=== PATIENT | male | born 1940 | race African-American/Black ===

== ENCOUNTER → 2016-11-07 | Outpatient (CLI) | payer MEDICARE, BC | END | disposition home or self-care (01) | LOC: PCVCCLINIC 10:20 | PROVIDERS: ATTEND Internal Medicine Cardiovascular Disease | DX: I25.10 Atherosclerotic heart disease of native coronary artery without angina pectoris (principal); E78.00 Pure hypercholesterolemia, unspecified; I73.9 Peripheral vascular disease, unspecified; I48.91 Unspecified atrial fibrillation; I10 Essential (primary) hypertension; I77.9 Disorder of arteries and arterioles, unspecified; I07.1 Rheumatic tricuspid insufficiency | CPT/HCPCS: 80061; 93005; G0463 ==

== ENCOUNTER → 2016-11-17 | Outpatient (CLI) | payer MEDICARE, BC | END | disposition home or self-care (01) | LOC: PCVCIMAG 08:22 | PROVIDERS: ATTEND Internal Medicine Cardiovascular Disease | DX: I65.23 Occlusion and stenosis of bilateral carotid arteries (principal); I73.9 Peripheral vascular disease, unspecified; Z95.820 Peripheral vascular angioplasty status with implants and grafts | CPT/HCPCS: 93880; 93925; 93978 ==

== ENCOUNTER → 2017-05-04 | Outpatient (CLI) | payer MEDICARE, BC | END | disposition home or self-care (01) | LOC: PCVCCLINIC 09:43 | PROVIDERS: ATTEND Internal Medicine Cardiovascular Disease | DX: I25.10 Atherosclerotic heart disease of native coronary artery without angina pectoris (principal); E11.9 Type 2 diabetes mellitus without complications; I10 Essential (primary) hypertension; I73.9 Peripheral vascular disease, unspecified; I48.2 Chronic atrial fibrillation; I77.9 Disorder of arteries and arterioles, unspecified; I36.1 Nonrheumatic tricuspid (valve) insufficiency; E78.00 Pure hypercholesterolemia, unspecified; Z87.891 Personal history of nicotine dependence; Z79.84 Long term (current) use of oral hypoglycemic drugs; Z79.01 Long term (current) use of anticoagulants | CPT/HCPCS: 80061; 93005; G0463 ==

== ENCOUNTER → 2018-01-21 | Outpatient (CLI) | payer MEDICARE, BC | END | disposition home or self-care (01) | LOC: PCVCCLINIC 10:20 | DX: I25.10 Atherosclerotic heart disease of native coronary artery without angina pectoris (principal); I10 Essential (primary) hypertension; I48.91 Unspecified atrial fibrillation; E78.00 Pure hypercholesterolemia, unspecified; I36.1 Nonrheumatic tricuspid (valve) insufficiency; I73.9 Peripheral vascular disease, unspecified; E11.9 Type 2 diabetes mellitus without complications; Z87.891 Personal history of nicotine dependence; Z79.899 Other long term (current) drug therapy; Z79.84 Long term (current) use of oral hypoglycemic drugs; Z79.01 Long term (current) use of anticoagulants | CPT/HCPCS: 80061; 93005; G0463 ==

== ENCOUNTER → 2018-02-05 | Outpatient (CLI) | payer MEDICARE, BC ==
[~2018-02-05] MED LIST: REGADENOSON 0.4 MG/5 ML DISP.SYRIN. IV
== END | disposition home or self-care (01) ==
LOC: PCVCIMAG 08:28
DX: I73.9 Peripheral vascular disease, unspecified (principal); I25.10 Atherosclerotic heart disease of native coronary artery without angina pectoris; I48.91 Unspecified atrial fibrillation
CPT/HCPCS: 78452; 93017; 93925; A9500; J2785

== ENCOUNTER → 2018-09-17 | Outpatient (CLI) | payer MEDICARE, BC | END | disposition home or self-care (01) | LOC: PCVCCLINIC 11:51 | PROVIDERS: ATTEND Internal Medicine Cardiovascular Disease | DX: I25.10 Atherosclerotic heart disease of native coronary artery without angina pectoris (principal); E78.00 Pure hypercholesterolemia, unspecified; I48.2 Chronic atrial fibrillation; I73.9 Peripheral vascular disease, unspecified; I36.1 Nonrheumatic tricuspid (valve) insufficiency; I10 Essential (primary) hypertension; E11.9 Type 2 diabetes mellitus without complications; Z87.891 Personal history of nicotine dependence; Z79.84 Long term (current) use of oral hypoglycemic drugs; Z79.01 Long term (current) use of anticoagulants | CPT/HCPCS: 80061; 93005; G0463 ==

== ENCOUNTER → 2019-04-17 | Outpatient (CLI) | payer MEDICARE, BC ==
--- NOTE | 2019-04-17 10:22 | PCVCIMAG ---
APPROVED REPORT Study performed: 04/17/2019 08:32:10 EXAM: Comprehensive 2D, Doppler, and color-flow Echocardiogram Patient Location: Echo lab Room #: 2Status: routine BSA: 2.34 HR: 63 bpmBP: 140/78 mmHg Rhythm: Atrial Fibrillation Other Information Study Quality: Good Risk Factors: Cardiac Risk Factors: HTN, Hyperlipidemia, DM Indications Diabetes Atrial Fibrillation CAD Hypertension/HDD 2D Dimensions IVSd: 11.32 (7-11mm)LVOT Diam: 23.23 (18-24mm) LVDd: 47.10 mm PWd: 12.15 (7-11mm)Ascending Ao: 34.55 (22-36mm) LVDs: 27.83 (25-40mm) Left Atrium: 46.04 (27-40mm) Aortic Root: 37.62 mm LV Single Plane 4CH: 52.76 % LV Single Plane 2CH: 62.35 % Biplane EF: 58.7 % Volumes Left Atrial Volume (Systole) Single Plane 4CH: 107.84 mLSingle Plane 2CH: 75.02 mL Biplane LA Volume: 94.00 mLLA ESV Index: 40.00 mL/m2 Aortic Valve AoV Peak Jin.: 1.43 m/s AO Peak Gr.: 9.90 mmHgLVOT Max P.92 mmHg LVOT Max V: 0.64 m/s MARISEL Vmax: 1.89 cm2 Mitral Valve MV E Max Jin.: 1.00 m/s MV PHT: 57.93 ms MVA (PHT): 3.80 cm2 IVRT: 103.81 ms TDI E/Lateral E': 7.69E/Medial E': 10.00 Medial E' Jin.: 0.10 m/s Lateral E' Jin.: 0.13 m/s Pulmonary Valve PV Peak Jin.: 0.92 m/sPV Peak Gr.: 3.39 mmHg Tricuspid Valve TR Peak Jin.: 2.85 m/s TR Peak Gr.: 32.38 mmHg TV Vmax: 0.88 m/sPA Pressure: 39.00 mmHg Left Ventricle The left ventricle is normal size. There is normal LV segmental wall motion. Borderline concentric left ventricular hypertrophy. Left ventricular systolic function is normal. The left ventricular ejection fraction is within the normal range. LVEF is 55-60%. This study is not technically sufficient to allow evaluation of the LV diastolic function due to atrial fibrillation. Right Ventricle Right ventricle is moderately dilated. The right ventricular systolic function is normal. Atria Left atrium is mildly dilated. Small PFO is noted. Right atrium is severely dilated. Aortic Valve Aortic valve is trileaflet. Mild aortic valve sclerosis with minimal reduction in leaflet excursion. No aortic regurgitation is present. There is no aortic valvular stenosis. Mitral Valve The mitral valve is normal in structure. There is no mitral valve regurgitation noted. No evidence of mitral valve stenosis. Tricuspid Valve The tricuspid valve is normal in structure. Moderate to severe tricuspid regurgitation with a PA pressure of 39 mmHg. Mild pulmonary hypertension. Pulmonic Valve The pulmonary valve is normal in structure. There is no pulmonic valvular regurgitation. Great Vessels The aortic root is normal in size. The ascending aorta is normal in size. Aortic arch is normal in caliber. IVC is normal in size and collapses >50% with inspiration. Pericardium There is no pericardial effusion. There is no pleural effusion. <Conclusion> The left ventricle is normal size. LVEF is 55-60%. This study is not technically sufficient to allow evaluation of the LV diastolic function due to atrial fibrillation. Right ventricle is moderately dilated. Left atrium is mildly dilated. Right atrium is severely dilated. Small PFO is noted. Aortic valve is trileaflet. Mild aortic valve sclerosis with minimal reduction in leaflet excursion. There is no mitral valve regurgitation noted. Moderate to severe tricuspid regurgitation with a PA pressure of 39 mmHg. Mild pulmonary hypertension. The aortic root is normal in size. There is no pericardial effusion.
--- NOTE | 2019-04-17 11:32 | PCVCIMAG ---
EXAM: BILATERAL LOWER EXTREMITY ARTERIAL DUPLEX INDICATION: Peripheral Arterial Disease. Leg pain. FINDINGS: Right Leg: Satisfactory arterial waveforms throughout the common/profunda/superficial femoral, popliteal, anterior tibial, peroneal, and posterior tibial arteries. No flow limiting stenosis seen. Previous right superficial femoral artery stent maintaining satisfactory patency. Left Leg: Satisfactory arterial waveforms throughout the common/profunda/superficial femoral, popliteal, anterior tibial, peroneal, and posterior tibial arteries. No flow limiting stenosis seen. Previous superficial femoral artery and popliteal artery stents maintaining satisfactory patency. Note is made of occlusion of the proximal dorsalis pedis. IMPRESSION: No flow limiting stenosis in the right lower extremity. Previous right superficial femoral artery stent maintaining satisfactory patency. Occlusion proximal left dorsalis pedis. Otherwise no flow limiting stenosis in the left lower extremity. Previous left superficial femoral artery and popliteal artery stents maintaining satisfactory patency. LOC:[id number]
== END | disposition home or self-care (01) ==
LOC: PCVCIMAG 08:22
PROVIDERS: ATTEND Internal Medicine Cardiovascular Disease
DX: I08.2 Rheumatic disorders of both aortic and tricuspid valves (principal); I27.20 Pulmonary hypertension, unspecified; I73.9 Peripheral vascular disease, unspecified; I25.10 Atherosclerotic heart disease of native coronary artery without angina pectoris; I65.23 Occlusion and stenosis of bilateral carotid arteries; I10 Essential (primary) hypertension; E11.51 Type 2 diabetes mellitus with diabetic peripheral angiopathy without gangrene; I48.2 Chronic atrial fibrillation; E78.00 Pure hypercholesterolemia, unspecified; Z87.891 Personal history of nicotine dependence; Z79.899 Other long term (current) drug therapy
CPT/HCPCS: 36415; 80061; 93306; 93925; G0463; 93005